=== PATIENT | female | born 1950 | race Caucasian/White ===

== ENCOUNTER → 2023-12-21 09:52 | Outpatient (REF) | payer MEDICARE, BC, SELFPAY | LOC: RAD 09:52 | PROVIDERS: ATTENDING PHYSICIAN Nurse Practitioner Family; FAMILY PHYSICIAN Student in an Organized Health Care Education/Training Program | DX: N95.0 Postmenopausal bleeding (principal) | CPT/HCPCS: 76830; 76856 ==

== ENCOUNTER 2024-02-19 06:18 | Day surgery (SDC) | payer MEDICARE, BC, SELFPAY ==
[2024-02-07 08:14] VITALS: BMI 17.9
[2024-02-19] VITALS (9 sets, daily range): BP systolic 112–130; BP diastolic 61–72; BMI 17.9
[2024-02-19] MEDS: NORMOSOL-R 1000 IV (08:00)
--- NOTE | 2024-02-19 10:35 | W.IMMPOSTOP ---
Surgical Immed Post Op Note
-
Primary Surgeon: Na Lennon DO
Assisting Surgeon: none
Pre-op Diagnosis: Postmenopausal bleeding; abnormal pelvic US showing increased vascularity in endometrial cavity
Post-op Diagnosis: same
Procedure Performed: Hysteroscopy D&C polypectomy with myosure device and ultrasound guidance
Anesthesia Type: general LMA Dr. Gutierrez
Specimen / Cultures: 1. endocervical curettings 2. endometrial curettings with sock containing resected polyp fragments
Estimated Blood Loss: 2ml
Fluid deficit: 60ml NSS
Complications: none
Operative Findings: Stenotic cervix. Uterus sounded to 6cm. Polyp noted filling endometrial cavity. Bilateral tubal ostia seen.
Sponge, sharp counts correct times 2.
Stable to recovery
Dictated.
== END 2024-02-19 12:15 | disposition home or self-care (01) ==
LOC: SDS 06:18
PROVIDERS: ATTENDING PHYSICIAN Obstetrics & Gynecology; FAMILY PHYSICIAN Student in an Organized Health Care Education/Training Program
DX: N95.0 Postmenopausal bleeding (principal); N84.0 Polyp of corpus uteri
CPT/HCPCS: 58558; 88305; 76998

== ENCOUNTER 2024-07-21 17:24 | Emergency (ER) | payer MEDICARE, BC, SELFPAY ==
[2024-07-21 17:26] VITALS: BP 175/74
[2024-07-21 18:07] VITALS: BMI 17.2
--- NOTE | 2024-07-21 19:27 | ED.GENMED ---
History of Present Illness
General
Chief Complaint: Extremity Pain (non-traumatic)
Source: patient
Time Seen by Provider: 07/21/24 17:49
History of Present Illness
History of Present Illness:
74-year-old female who presents with pain behind her left knee. She also reports the pain radiates toward her upper calf and up toward the area just above her knee. She states she was recent vacation walking [place] lot [place] the [place]. No obvious
injury. No fevers. She does have a history of leg cramping and the symptoms seem worse after an episode of leg cramping the other day. Symptoms have been ongoing for the last 3 to 4 days.
Past History
Past History
ED Past Medical History: Other (Colon cancer, DVT, cataracts, depression, right-sided Hammonds's cyst,)
Phy Exam
Physical Exam
Physical Exam:
CONSTITUTIONAL Vital signs reviewed, Patient alert and oriented to person, place and time. Well-appearing
HEAD atraumatic, normocephalic.
EYES eyelids normal to inspection, Extraocular muscles intact, Conjunctiva normal, Sclera normal.
NECK normal range of motion, Trachea midline, no jugular venous distention.
RESP no respiratory distress
BACK No obvious deformities
UPPER EXTREMITY Gross Range of motion normal, gross motor strength normal
LOWER EXTREMITY Gross motor strength normal. Limited range of motion left knee due to pain. There is noted mild swelling about the left knee and question small effusion. She has tenderness to the popliteal fossa on the left. She has normal
distal pulses. There is no lower extremity distal edema.
NEURO Speech normal, No focal motor deficits include, Soraya coma scale 15, Memory normal, Cranial Nerves intact to screening exam.
SKIN Skin warm, dry, and normal in color.
PSYCHIATRIC Patient oriented to person place and time, Normal affect.
Course
Orders/Labs/Results
Orders:
Orders
07/21/24 18:00
US Legs, Left [US Periph Venous LOWER Ext LT] Urgent
Comment:
Reason For Exam: swelling, pain, recent travel
07/21/24 19:25
Crutches-Treatment ONCE
Hydrocodone 5/APAP 325 [[place] 5/325] 2 tablet PO NOW STA
Prednisone [Deltasone] 50 mg PO NOW STA
Vital Signs
Initial and Last Documented VS:
Initial Vital Signs
Temp Pulse Resp BP Pulse Ox
98.7 F 69 18 175/74 100
07/21/24 17:26 07/21/24 17:26 07/21/24 17:26 07/21/24 17:26 07/21/24 17:26
Last Documented Vital Signs
Temp Pulse Resp BP Pulse Ox
98.7 F 69 18 175/74 100
07/21/24 17:26 07/21/24 17:26 07/21/24 17:26 07/21/24 17:26 07/21/24 17:26
MDM/Problems Addressed
MDM/Problems Addressed:
Hammonds's cyst
Acute Exacerbation and/or Progression of Chronic Illness: HTN
*Radiology
Radiology exam reviewed: radiology read reviewed
*Pulse Oximetry
Patient hypoxic: no
*Critical Care Note
Total Time (30-74mins, 75-104mins- exclusive of procedures): Not Applicable
Data Reviewed
Source: patient and spouse
Prescriptions/Medications Considered But Not Given:
Consider course of steroids but for now we will give 1 dose pending outpatient orthopedic follow-up for possible injectable glucocorticoid
Patient Management
Escalation/DeEscalation of care consider admission/obs:
Patient has a history of Hammonds's cyst. Suspect that is the etiology of her symptoms. She has outpatient follow-up with orthopedics already planned. Recommended closer follow-up for possible injection. Also recommended ice and NSAIDs.
ED Attending Note
-
Portions of this chart may have been created with voice recognition software.� Occasional wrong word or��sound alike� substitutions may have occurred due to the inherent limitations of voice recognition software.
Discharge Plan
Departure
Patient Disposition: Home (Routine Discharge)
Date of Disposition: 07/21/24
Time of Disposition: 19:27
Patient with high blood pressure during this ER visit?: Yes
Discharge Problem:
Hammonds's cyst
Instructions: Hammonds's (popliteal) cyst, BLOOD PRESSURE
Prescriptions:
New
hydrocodone-acetaminophen 5-325 mg tablet
2 tab PO Q6H PRN (Reason: Pain) Qty: 14 0RF
No Action
clonazepam 0.5 mg Tablet
0.5 mg PO HS
liothyronine 5 mcg Tablet
5 mcg PO DAILY
levothyroxine 75 mcg Tablet
75 mcg PO DAILY
zolpidem [Ambien] 5 mg Tablet
5 mg PO HS
biotin 10,000 mcg Capsule
10,000 mcg PO DAILY
melatonin 12 mg Tablet
12 mg PO HS
Cytotec
1 tab PO .PERPROTOCOL
Referrals:
Jana Silva MD [Family Provider] -
Activity Restrictions/Additional Instructions:
Please see orthopedics in follow-up in the next 3 to 5 days. Return immediately for fever, increased swelling, increased pain or any other concerns. please ice your knee and back of the knee as discussed. Use ibuprofen every 6 hours for pain
control
Interventions
Interventions:
*ED COVID-19 Vaccine History Last Done: 07/21/24 17:26
ED-Musculoskeletal Assessment Last Done: 07/21/24 18:09
ED-Skin Assessment Last Done: 07/21/24 18:09
Discharge Date and Time
Print Language: EQUATORIAL GUINEAN
[2024-07-21] MEDS: NORCO 5/325 2 TABLET PO (19:32)
[2024-07-21] MEDS: DELTASONE 50 MG PO (19:33)
[2024-07-21 19:51] VITALS: BP 149/83
== END 2024-07-21 19:52 | disposition home or self-care (01) ==
LOC: EMR 17:24
PROVIDERS: EMERGENCY PHYSICIAN Emergency Medicine; FAMILY PHYSICIAN Student in an Organized Health Care Education/Training Program
DX: M71.22 Synovial cyst of popliteal space [Baker], left knee (principal); Z85.038 Personal history of other malignant neoplasm of large intestine; Z86.718 Personal history of other venous thrombosis and embolism
CPT/HCPCS: 99284; 93971

== ENCOUNTER → 2024-10-17 13:32 | Outpatient (REF) | payer MEDICARE, BC, SELFPAY | LOC: WDC 13:32 | PROVIDERS: ATTENDING PHYSICIAN Obstetrics & Gynecology; FAMILY PHYSICIAN Student in an Organized Health Care Education/Training Program | DX: Z12.31 Encounter for screening mammogram for malignant neoplasm of breast (principal) | CPT/HCPCS: 77063; 77067 ==

== ENCOUNTER → 2025-01-22 12:38 | Outpatient (REF) | payer MEDICARE, BC, SELFPAY | LOC: RCS 12:38 | PROVIDERS: ATTENDING PHYSICIAN Internal Medicine Cardiovascular Disease; FAMILY PHYSICIAN Student in an Organized Health Care Education/Training Program | DX: R07.9 Chest pain, unspecified (principal) | CPT/HCPCS: 93017; 93350 ==

== ENCOUNTER → 2025-02-05 15:41 | Outpatient (REF) | payer MEDICARE, BC, SELFPAY | LOC: RCS 15:41 | PROVIDERS: ATTENDING PHYSICIAN Internal Medicine Cardiovascular Disease; FAMILY PHYSICIAN Student in an Organized Health Care Education/Training Program | DX: R07.9 Chest pain, unspecified (principal) | CPT/HCPCS: 93306 ==

== ENCOUNTER → 2025-02-07 10:32 | Outpatient (REF) | payer MEDICARE, BC, SELFPAY | LOC: RAD 10:32 | PROVIDERS: ATTENDING PHYSICIAN Student in an Organized Health Care Education/Training Program | DX: M54.6 Pain in thoracic spine (principal); R07.81 Pleurodynia | CPT/HCPCS: 71111; 72072 ==

== ENCOUNTER → 2025-02-21 12:36 | Outpatient (REF) | payer MEDICARE, BC, SELFPAY | LOC: RAD 12:36 | PROVIDERS: ATTENDING PHYSICIAN Physician Assistant; FAMILY PHYSICIAN Student in an Organized Health Care Education/Training Program; OTHER PHYSICIAN Internal Medicine Gastroenterology | DX: Z85.038 Personal history of other malignant neoplasm of large intestine (principal); R19.4 Change in bowel habit; K59.00 Constipation, unspecified; R10.31 Right lower quadrant pain | CPT/HCPCS: 74177; Q9967 ==

== ENCOUNTER → 2025-09-03 08:14 | Outpatient (REF) | payer MEDICARE, BC, SELFPAY | LOC: HWRAD 08:14 | PROVIDERS: ATTENDING PHYSICIAN Student in an Organized Health Care Education/Training Program; REFERRING PHYSICIAN Internal Medicine Gastroenterology | DX: R14.0 Abdominal distension (gaseous) (principal); Z80.41 Family history of malignant neoplasm of ovary; R10.13 Epigastric pain | CPT/HCPCS: 76700; 76830; 76856 ==

== ENCOUNTER → 2025-10-15 08:08 | Outpatient (REF) | payer MEDICARE, BC, SELFPAY | LOC: HWRAD 08:08 | PROVIDERS: ATTENDING PHYSICIAN Student in an Organized Health Care Education/Training Program; REFERRING PHYSICIAN Obstetrics & Gynecology | DX: N83.9 Noninflammatory disorder of ovary, fallopian tube and broad ligament, unspecified (principal) | CPT/HCPCS: 76830; 76856 ==

== ENCOUNTER → 2025-10-20 13:00 | Outpatient (REF) | payer MEDICARE, BC, SELFPAY | LOC: WDC 13:00 | PROVIDERS: ATTENDING PHYSICIAN Student in an Organized Health Care Education/Training Program | DX: Z12.31 Encounter for screening mammogram for malignant neoplasm of breast (principal) | CPT/HCPCS: 77063; 77067 ==